=== PATIENT | female | born 1985 | race Hispanic/Latino ===

== ENCOUNTER 2016-08-18 05:11 | Emergency (ER) | payer SELFPAY ==
[~2016-08-18] VITALS: Ht 160 cm; Wt 100.0 kg
[~2016-08-18 05:11] MED LIST: IBUP400T22 PO
[2016-08-18 05:33] VITALS: BP 161/105; PULSE 75; RESP 16; O2SAT 98
--- NOTE | 2016-08-18 06:19 | ED.REPORT ---
HPI-Abd Pain F Under 40 Date of Service Aug 18, 2016 ED Provider: Humberto Paiz MD The pt is a 31 y/o female w/ a hx of a cholecystectomy and 7 births presenting to the ED complaining of lower abdominal pain onset 5 days ago. She describes waking up w/ feelings of menstrual cramps but w/ no bleeding. The pain has been continuous since onset but began radiating to the top of her abdomen two days ago. She has had seven children and she describes the pain similar to her contractions. Coughing and defecation increases the pain. She also has been experiencing vomiting, which she describes as tasting like medicine and acid, and nausea. Denies dysuria or fever. She last took an ibuprofen yesterday for the pain. She was on control, changed to "depo" on April 25 which then last month. The pt began spotting July 13 which lasted 4 days, and continues to use sexual protection. Nursing Notes Stated Complaint: ABDOMINAL PAIN Chief Complaint: Female Abdominal Pain Nursing Notes Reviewed: Yes (Collisionable, [employer] not reconciled) Allergies: Coded Allergies: hydrocodone (Verified Adverse Reaction, Mild, N/V, 06/14/10) Scheduled PRN Ibuprofen (Ibuprofen) 800 Mg Tablet 800 MG PO TID PRN PRN For Pain Ondansetron ODT (Ondansetron ODT) 8 Mg Tab.rapdis 8 MG PO Q4H PRN PRN For Nausea oxyCODONE-Acetaminophen 5-325 mg (oxyCODONE-Acetaminophen 5-325 mg) 1 Each Tablet 0.5-2 TAB PO Q6H PRN PRN For Pain Miscellaneous Medications IBUPROFEN-Expunged Drug, Do Not Renew! (IBUPROFEN-Expunged Drug, Do Not Renew!) 400 Mg Tablet 400 MG PO General Time Seen by MD: 06:16 Chief Complaint Abdominal pain Hx Obtained From: Patient Arrived By: Walk-in Sudden in Onset?: Yes Onset Occurred: 5 days ago Symptom Duration: Since onset Recent Healthcare: No recent doctor visit, No recent hospitalization Past Medical History Past Medical History Kidney stones Past Surgical History Reports: Cholecystectomy Review of Systems Constitutional: Denies: Fever GI: Reports: Abdominal pain, Nausea, Vomiting Female: Denies: Dysuria Complete sys rev & neg: except as marked. Physical Exam Initial Vital Signs Vital Signs (First) Date Time Temp Pulse Resp B/P Pulse Ox O2 Delivery O2 Flow Rate FiO2 08/18/16 05:33 36.8 75 16 161/105 98 Room Air Initial VS: Reviewed, Vital signs abnormal (HTN) Head / Eyes: Atraumatic, Normocephalic, PERRL Neck: Supple, Non-tender, Full range of motion Extremities: Vascular intact, Neuro intact, No swelling, No tenderness Skin: Warm, Dry, No cyanosis Neurologic: Alert, Oriented, Nonfocal Psychiatric: Mood/affect normal, Behavior normal, Normal thought content General/Constitutional: Awake, Alert Appearance / Presentation: Positive: Uncomfortable Respiratory / Chest: Atraumatic, Breath sounds NL, Breath sounds = bilat, No respiratory distress, No rales, No rhonchi, No wheezing Cardiovascular: Heart rate NL, Regular rhythm, Heart sounds NL Abdomen: Atraumatic, Soft, Non-tender Back: Atraumatic, Full range of motion Interpretation & Diagnostics Lab Results Interpretation Result Diagram: 08/18/16 0622 08/18/16 0622 Test 08/18/16 06:05 08/18/16 06:22 White Blood Count 11.0th/mm3 (3.8-10.1) Red Blood Count 4.94mil/mm3 (3.90-5.20) Hemoglobin 14.8g/dL (12.0-15.6) Hematocrit 43.8% (35.0-46.0) Mean Corpuscular Volume 88.7fL (81-100) Mean Corpuscular Hemoglobin 30.0pg (27.0-35.0) Mean Corpuscular Hemoglobin Concent 33.8% (32.0-37.0) Red Cell Distribution Width 13.2% (12.3-15.4) Platelet Count 223bil/L (150-400) Neutrophils (%) (Auto) 65.5% (40-74) Lymphocytes (%) (Auto) 24.6% (14-46) Monocytes (%) (Auto) 7.7% (4-12) Eosinophils (%) (Auto) 1.5% (0-5) Basophils (%) (Auto) 0.3% (0-3) Sodium Level 136mEq/L (134-144) Potassium Level 3.7mEq/L (3.5-5.2) Chloride Level 102mEq/L (97-108) Carbon Dioxide Level 20mmol/L (18-29) Blood Urea Nitrogen 14mg/dL (6-20) Creatinine 0.59mg/dL (0.57-1.00) Estimat Glomerular Filtration Rate 168mL/min (>59) Glucose Level 115mg/dL (60-99) Calcium Level 9.1mg/dL (8.5-10.1) Magnesium Level 2.0mg/dL (1.6-2.6) Total Bilirubin 0.3mg/dL (0.0-1.2) Aspartate Amino Transf (AST/SGOT) 21U/L (0-50) Alanine Aminotransferase (ALT/SGPT) 30U/L (0-32) Alkaline Phosphatase 68U/L (25-150) Total Protein 7.4g/dL (6.4-8.4) Albumin 4.2g/dL (3.4-5.0) Lipase 23U/L (13-60) Hold Deshpande Top Tube Received (Received) Lab Results Interpretation: CBC marginal leukocytosis CMP normal pregnative negative Re-Eval/Medical Decision Med Decision/Clinical Course This is a 31-year-old female presents with pelvic pain cramping in trace bleeding. She has been on long-term depot therapy, which is recently discontinued did not happen up. During the entire process. This stopped about 2 months ago. She did not have any cramping developed over the past few days and she feels like it is a period, but is much much more severe. This ultimately brought her to the burst department. She has had no fever, trace questionable discharge. Denies any risk for STDs. She has no additional complaints. On exam she appears mildly uncomfortablee, but not in any distress in her abdomen soft nontender to palpation. Blood work reveals trace leukocytosis, is negative. GC is pending. Ultrasound reveals a thickened endometrium, but no other pathology identified. This is likely from the prolonged hormone therapy. My suspicion for PID or cervicitis is relatively low given her description. She received Toradol to dislodge feels much better. I think continue conservative therapy with ibuprofen, and some when necessary hydrocodone is reasonable in this setting. I have explained that I have expect some heavy cramping and bleeding in this but did not take her onset of menses with a thickened endometrium following up prolonged course of hormonal therapy. Patient is much improved on reevaluation, she continues to have a soft nontender abdomen without clinical signs of surgical abdomen, and is comfortable with discharge. Routine and return precautions reviewed. Source of Hx: Old records Re-Evaluation/Progress : Time of Eval: 09:37 Re-Evaluation/Progress Note: Pt rechecked. Informed pt of plan for treatment. Pt understands and agrees with plan for treatment. F/U instructions and RTER warnings given. All questions addressed. Differential Diagnosis: Positive: Bowel obstruction, Negative: Abscess, Ectopic preg ruptured, Gun shot wound abdomen, Pancreatitis, Stab wound abdomen, Urolithiasis Counseled Regarding: Diagnosis, Need for follow-up, When/why to return to ED Discharge & Departure Primary Impression: Pelvic pain Disposition: Home Discharge Condition All VS Reviewed: Yes Condition: Stable Additional Instructions: 1. Your ultrasound suggests that the pelvic cramping is likely related to a thick endometrium in the uterus that developed after being on control medications for so long. 2. Your pictures and blood tests were otherwise normal 3. Ibuprofen 400-800 mg 3 times a day. This should help with the upcoming period and cramping. 4. If needed for more severe pain, take oxycodone/APAP 5/325 1/2 tab up to 2 tabs every 6 hours. Use sparingly. Note: This medication does contain a narcotic and causes some drowsiness. No driving for at least 4-6 hours after taking. 5. If needed for nausea take ondansetron 8 mg-let dissolve underneath the tongue-up to every 4 hours as needed for nausea. 6. Return if new or worsening symptoms. 7. Follow up with [facility], call for an appointment. Referrals: [facility] (PCP) Scribe Attestation Portions of this note were transcribed by Andrew Boone. I, Dr. Paiz personally performed the history, physical exam and medical decision-making; I reviewed and confirmed the accuracy of the information in the transcribed note. Signed by : David Martin, 08/18/16 and 1010. copies to: [facility] Matthew F MD Aug 18, 2016 06:19 Andrew Boone Aug 18, 2016 10:14
[2016-08-18 06:30] LABS: BASOPHILS % (AUTO) 0.3 % (0-3); EOSINOPHILS % (AUTO) 1.5 % (0-5); MONOCYTES % (AUTO) 7.7 % (4-12); Mean Corpuscular Volume 88.7 fL (81-100); NEUTROPHILS % (AUTO) 65.5 % (40-74); Platelet Count 223 bil/L (150-400)
[2016-08-18] MEDS ORDERED: Ondansetron 2 mg/mL 2 mL Inj IVPUSH ONE (06:55)
[2016-08-18] MEDS: HYDROmorphone 0.5 mg/0.5 mL iSecure Syringe IVPUSH PRN ×2 (08:06→10:18)
[2016-08-18 08:11] VITALS: BP 165/102; PULSE 82; RESP 18; O2SAT 98
[2016-08-18] MEDS ORDERED: OXYC1TAB24 PO (09:55)
[2016-08-18] MEDS ORDERED: ONDA8TAB10 PO (09:55)
[2016-08-18] MEDS ORDERED: IBUP800T28 PO (09:55)
[2016-08-18 10:20] VITALS: BP 157/93; PULSE 77; RESP 18; O2SAT 100
[2016-08-18 10:58] VITALS: BP 142/90; PULSE 72; RESP 18; O2SAT 100
--- NOTE | 2016-08-18 11:39 | DRSVH ---
PROCEDURE: US PELVIC SONOGRAM + TRANSVAGINAL SONOGRAM INDICATIONS: pelvic pain TECHNIQUE: Real-time scanning was performed of the pelvic organs, with image documentation. Additional endovagi nal scanning was necessary due to incomplete visualization of the adnexal and endometrial structures by transabdominal scanning. COMPARISON: None. FINDINGS: Transabdominal scanning: Limited scanning through the kidneys shows no hydronephrosis. No pathologi c free abdominal or pelvic fluid. Endovaginal scanning: Uterus: Uterus is normal in size at 9.3 x 4.9 x 5.7 cm. The endometrium measures 16 mm in combined thickness and appears mildly heterogeneous without increased vascularity. There is a small nabothian cyst. Ovaries: The right ovary measures 3.0 x 2.8 by the 1 cm and the left ovary measures 2.6 x 2.2 x 3.3 c m. No adnexal masses. IMPRESSION: 1. No definite acute sonographic abnormality identified in the pelvis. Dictated by: Saeed Salazar M.D. on 08/18/2016 at 11:31 Approved by: Saeed Salazar M.D. on 08/18/2016 at 11:32
== END 2016-08-18 10:59 | disposition home or self-care (01) ==
LOC: SED 05:11
DX: R10.2 Pelvic and perineal pain (principal); R10.30 Lower abdominal pain, unspecified; R11.2 Nausea with vomiting, unspecified; Z90.49 Acquired absence of other specified parts of digestive tract; Z88.5 Allergy status to narcotic agent
CPT/HCPCS: 36415; 76830; 76856; 80053; 81025; 83690; 83735; 85025; 87491; 87591; 96374; 96375; 99285; J1170; J1885; J2405